=== PATIENT | female | born 1990 | race Hispanic/Latino ===

== ENCOUNTER 2019-12-02 09:23 | Day surgery (SDC) | payer OTHER ==
[2019-12-02 10:08] VITALS: BP 123/75; TEMP 98.8; BMI 32.0
[2019-12-02] MEDS ORDERED: hydrALAZINE 20 MG/ML VIAL SLOW IVP PRN (10:18)
--- NOTE | 2019-12-02 10:36 | PDOC.FPROB ---
FMR OB H&P: HPI - History of Present Illness Chief Complaint: Contractions Indentification: 29yo @ 38.5 History of Present Illness: Pt states that at 0230 this morning she was awakened to pain in her back that felt like cramping. It progressed and started to wrap around her abdomen and pt realized she was having cxns. By 0800 they were 4 minutes apart prompting her to seek evaluation. Denies any vaginal bleeding or new discharge, loss of fluid, headaches, vision changes, N/V/D. She was checked at her last OB appointment 3 days ago and was dilated to a 2. Pt was scheduled for induction on 12/05 but missed her COVID appointment because pt stated that she was not informed of this induction date. Primary Care Physician: Dr. Dunlap FMR OB H&P: Current - Care : 3 Para: 2 Gestational age: 38.5 Due date: 12/11/2019 Dating Criteria: LMP and 1T sono Course/Complications: None - OB Labs Blood type: O RH: positive HIV: negative RPR: negative HepBsAg: negative Rubella: immune Urine drug screen: negative 1 hour gtt: 93 GBS: negative H&H: 11 FMR OB H&P: History - Past Medical History PMH: None - OB History OB History: 2 previous term vaginal deliveries without complications - ANNUAL GIVING MANAGER History ANNUAL GIVING MANAGER History: None - Surgical History Sx History: None - Social History Social History: Denies tobacco, alcohol, or illicit drug use - Family History Family History: Non contributory FMR OB H&P: Medications - Current Home Medications: Medication Instructions Recorded Confirmed Type Pnv No.95/Ferrous Fum/Folic AC 1 each PO DAILY 12/02/19 12/04/19 History [ [place]] Allergies/Adverse Reactions: Allergies Allergy/AdvReac Type Severity Reaction Status Date / Time No Known Drug Allergies Allergy Verified 12/04/19 20:16 FMR OB H&P: ROS - Review of Systems General: denies: fever/chills, fatigue Eyes: denies: vision changes, scotomas ENT: denies: nasal congestion, sore throat Cardiovascular: denies: chest pain, palpitation, edema Respiratory: denies: cough, shortness of breath Gastrointestinal: denies: nausea, vomiting, diarrhea, constipation Genitourinary (Female): reports: contractions. denies: incontinence, dysuria, vaginal discharge, vaginal bleeding Neurologic: denies: weakness, headache Integumentary: denies: rash, lesions Psychological: denies: depression, anxiety FMR OB H&P: Vital Signs - Maternal Vital signs: Vital Signs - First Documented Temp Pulse Resp BP Pulse Ox 98.8 F 74 16 123/75 98 12/02/19 09:38 12/02/19 09:38 12/02/19 09:38 12/02/19 09:38 12/02/19 09:38 - Heart Tones Baseline: 135 Variability: moderate Acceleration: present Deceleration: absent Category: category 1 [place] contractions every: 3-5 FMR OB H&P: Physical Exam - Physical Exam General: NAD, awake, alert and oriented HEENT: normocephalic and atraumatic, EOMI, MMM Heart: RRR, normal S1/S2, no murmurs/rubs/gallops, pulses present General: CTAB, no respiratory distress, good air movement Abdomen: soft, gravid, non-tender Musculoskeletal: pulses present, FROM in all four extremities Neurological: no focal deficit Skin: no rash, capillary refill <2 seconds Psychiatric: intact recent and remote memory, good judgement and insight - Pelvic Exam SVE: 2/50/-3 [place] score: 3 FMR OB H&P: A/P Disposition: Labor check - Term intrauterine - presented with complaints of contractions rated 2-3/10 occurring q4 minutes - on monitor initially carmen q3 minutes now spacing out to >q6 minutes - no signs/sx of ROM - cervical check of 2/50/-3 upon arrival - Cat 1 strip 1035: Plan- Will observe patient on the unit for 2 hours and re-check to confirm if she is making cervical change. Contractions now spacing out so seems unlikely. Disposition pending update in clinical status at that time. Update @ 1232: Patient has made cervical change to 3/60/-2. Will continue to monitor further to confirm pt is continuing to make change. Will place back on the monitor to better assess frequency of contractions. Update @ 1426: Check remains 3/60/-2. Pt's pain has moved to her lower abdomen and no longer in her back. Rates it at 2/10 currently. Discussed options to further induce patient's labor. Pt requests to be discharged home. Had in depth discussion regarding reasons to return and labor precautions. Discussion: Date/Time: 12/02/19 1034 This H&P was discussed with Dr. Rooney who agrees with the above documentation and plan. Addendum - Attending - Attending Attestation Date/Time: 12/06/19 1019 I personally evaluated the patient and discussed the management with Dr. Smith I agree with the History, Examination, Assessment and Plan documented above with any addition or exceptions noted below.
== END 2019-12-02 14:38 | disposition home or self-care (01) ==
LOC: L&D/OP 09:23
PROVIDERS: ATTEND Student in an Organized Health Care Education/Training Program
DX: O47.1 False labor at or after 37 completed weeks of gestation (principal); Z3A.38 38 weeks gestation of pregnancy
CPT/HCPCS: 99283

== ENCOUNTER 2019-12-04 19:33 | Day surgery (SDC) | payer OTHER ==
[2019-12-04 20:15] VITALS: BP 134/72; BMI 32.0
[2019-12-04] MEDS ORDERED: hydrALAZINE 20 MG/ML VIAL SLOW IVP PRN (23:08)
--- NOTE | 2019-12-05 01:44 | PRG ---
DATE OF SERVICE: 12/04/2019 PRIMARY OB: Dr. Deja Dunlap. CHIEF COMPLAINT: Contractions. HISTORY OF PRESENT ILLNESS: The patient is a 29-year-old G3, P2 female with an intrauterine at 39 weeks' gestation, presenting to Labor and Delivery with progress of uterine contractions since about 6 o'clock. She reports contractions have come as close as every 6 to 8 minutes. She reports that they have become much stronger than they were 2 days ago when she had presented with the same complaint. The patient denies vaginal bleeding or leakage of fluid. She denies fever, cough, headache, chest pain, shortness of breath, nausea, vomiting, diarrhea, constipation, hip problems, knee problems, muscle weakness. PAST MEDICAL HISTORY: Negative. PAST SURGICAL HISTORY: Negative. ALLERGIES: NO KNOWN DRUG ALLERGIES. MEDICATIONS: vitamins. SOCIAL HISTORY: Denies drug, alcohol, or tobacco use. OB LABS: Blood type is O positive. Antibody screen is negative. HIV negative. RPR nonreactive. Hepatitis B surface antigen nonreactive. She is rubella immune. 1-hour glucose 93. She is GBS negative. PHYSICAL EXAMINATION: VITAL SIGNS: Blood pressure 129/82, heart rate of 75, respiratory rate of 18, saturating 98% on room air. GENERAL: She appears to be in no acute distress. She is alert, oriented, cooperative, and pleasant to interact with. HEENT: Head is normocephalic and atraumatic. LUNGS: Clear to auscultation bilaterally. HEART: Has a regular rate and rhythm. ABDOMEN: Gravid and soft. EXTREMITIES: Nontender, nonedematous. Cervical exam per nursing staff is 3, 50, and -3 station which was equivalent to her exam two days ago. Repeat exam 3 hours later is unchanged. heart tracing shows the fetus with a baseline in the 120s with moderate long-term variability, positive 15 x 15 accelerations, no decelerations. Tocometer shows irregular contractions without any specific pattern. ASSESSMENT AND PLAN: The patient is a 29-year-old female at 39 weeks' gestation, presenting for abdominal pain and evaluation of labor. The patient has been monitored for 3 hours without any signs or symptoms of labor. The patient is comfortable with going home. Fetus is category 1 tracing and reactive NST. She has appointment with Dr. Dunlap tomorrow that we have encouraged to keep. Job ID: [id number]
== END 2019-12-04 23:20 | disposition home or self-care (01) ==
LOC: L&D/OP 19:33
PROVIDERS: ATTEND Student in an Organized Health Care Education/Training Program
DX: O47.1 False labor at or after 37 completed weeks of gestation (principal); O99.891 Other specified diseases and conditions complicating pregnancy; R10.9 Unspecified abdominal pain; Z3A.39 39 weeks gestation of pregnancy
CPT/HCPCS: 99283

== ENCOUNTER 2019-12-10 08:11 | Inpatient (IN) | payer OTHER ==
[2019-12-10 08:45] VITALS: BMI 32.0
[2019-12-10] MEDS ORDERED: Lidocaine 1% (PF) 30 ML VIAL SC PRN (09:01)
[2019-12-10] MEDS ORDERED: NS / Oxytocin 40 units/1000ml 1,000 ML IV PRN (09:01)
[2019-12-10] MEDS ORDERED: hydrALAZINE 20 MG/ML VIAL SLOW IVP PRN ×2 (09:01→15:37)
[2019-12-10] MEDS ORDERED: Ondansetron PF 4 MG/2 ML Vial IVP PRN ×3 (09:01→15:37)
[2019-12-10] MEDS ORDERED: Promethazine HCl 25 MG/ML VIAL IM PRN ×2 (09:01→10:46)
--- NOTE | 2019-12-10 09:05 | PDOC.LDHP ---
Labor and Delivery H&P Chief complaint: loss of fluid HPI: 29 y/oF # 39.6 weeks presents to L&D with LOF at 7 AM this morning. reports good movements slight vaginal spotting with LOF few intermittent ctx since LOF this morning, painful. denies previous vag d/c ROS: denies visual changes, CP, SOB, cough, fever, chills, body aches, increased swelling, abd pain, n/c/d. pt reports her GBS was negative in office PCP: Dr. Dunlap Current gestational age (weeks): 39 (39.6) Due date: 12/11/19 Grav: 3 Para: 2 OB History Details: Preg #1: in 2008, 40 weeks Preg #2: in 2017, 40 weeks Current complications: none Past Medical History: no known medical problems Current medications: pre-jacob vitamins Previous surgical history: none Allergies/Adverse Reactions: Allergies Allergy/AdvReac Type Severity Reaction Status Date / Time No Known Drug Allergies Allergy Verified 12/04/19 20:16 Social history: none - Physical Exam Vital signs reviewed and normal: yes General: NAD, resting, breathing through contractions Heart: RRR Lungs: CTAB Abdomen: gravid Extremeties: no edema FHT: category 1 (130 baseline, with acels, no decles, mod manpreet) [place] contractions every: Q8-10 min - Vaginal Exam cm dilated: 4 (/-4) Effacement: 75% - OB Labs Blood type: O RH: positive HIV: negative RPR: negative HEPSAg: negative GBS: negative Rubella: immune - Assessment L&D Assessment: term patient in labor 29 y/o F presents to L&D with SROM, with gross amniotic fluid leak 1. sIUP @39.6 wks - FHT and toco monitoring - grossly ruptured and fluid leaking per vagina on exam. No membranes palpated on SVE. - Dr. Dunlap has been notified of patient's arrival - GBS neg - SVE: /-4 Dispo: admit to L&D for labor and SROM Dr. Dunlap notified and will manage patient. - Plan Plan: admit to L&D Addendum - Attending - Attending Attestation Date/Time: 12/10/19 1017 I personally evaluated the patient and discussed the management with Dr. Machado. Term IUP admiited with SROM, 4 cm. Admitted, Dr. Dunlap notified. I agree with the History, Examination, Assessment and Plan documented above.
[2019-12-10] MEDS ORDERED: Lactated Ringer's 1,000 ML IV SCH (09:15)
[2019-12-10 09:46] LABS: Hemoglobin 10.4 g/dL (12.0-16.0); Mean Corpuscular Hemoglobin 27.9 pg (27.0-31.0); Mean Corpuscular Volume 82.1 fL (78.0-98.0); Mean Platelet Volume 9.1 fL (7.4-10.4); Platelet Count 244 thou/uL (130-400); RBC Distribution Width 13.8 % (11.5-14.5); Red Blood Cell (RBC) Count 3.73 mill/uL (4.20-5.40); White Blood Cell (WBC) Count 7.8 thou/uL (4.8-10.8)
[2019-12-10] MEDS ORDERED: Fentanyl 4 mcg/Bup 0.1% Cadd 100 ML ONE (09:59)
[2019-12-10 10:24] LABS: Syphilis Antibody Nonreactive (Nonreactive); Syphilis Antibody Index 0.04 S/CO (<1.00 Non-Reactive)
[2019-12-10 10:25] LABS: HBSAg Index 0.13 S/CO (0-0.99); Hep B Surf Ag Non-Reactive S/CO (NonReactive)
[2019-12-10] MEDS ORDERED: Acetaminophen 325 MG TAB PO PRN (10:46)
[2019-12-10] MEDS ORDERED: diphenhydrAMINE 50 MG/ML VIAL IVP PRN (10:46)
[2019-12-10] MEDS ORDERED: Naloxone HCl 0.4 mg/ml Vial IVP PRN ×2 (10:46)
[2019-12-10] MEDS ORDERED: Lactated Ringer's 500 ML IV PRN (10:46)
[2019-12-10] MEDS ORDERED: ePHEDrine 50 MG/ML VIAL SLOW IVP PRN (10:59)
[2019-12-10] MEDS ORDERED: Fentanyl 4 mcg/Bupivacaine 0.1% Cassette 100 ML EPIDURAL SCH (11:00)
[2019-12-10] MEDS ORDERED: Communication Order-Pharmacy FS SCH (11:00)
[2019-12-10] MEDS ORDERED: Milk Of Magnesia 30 ML UDCUP PO PRN (15:37)
[2019-12-10] MEDS ORDERED: NS / Oxytocin 40 units/1000ml 1,000 ML IV SCH (15:37)
[2019-12-10] MEDS ORDERED: Lanolin Ointment 7 GM TUBE TOP PRN (15:37)
[2019-12-10] MEDS ORDERED: Benzocaine-Menthol 82.5 ML CAN TOP PRN (15:37)
[2019-12-10] MEDS ORDERED: Adacel (T-DAP) 0.5 ML SYRINGE IM ONE (15:37)
[2019-12-10] MEDS ORDERED: Bisacodyl 10 MG SUPP PR PRN (15:37)
[2019-12-10] MEDS ORDERED: diphenhydrAMINE 25 MG CAP PO PRN (15:37)
[2019-12-10] MEDS: Ferrous Sulfate 325 MG TAB PO SCH (18:27)
[2019-12-10] MEDS: Ibuprofen 800 MG TAB PO SCH (20:09)
[2019-12-10] MEDS: Docusate Calcium (SURFAK) 240 MG CAP PO SCH (20:09)
[2019-12-11] MEDS: Ibuprofen 800 MG TAB PO SCH ×2 (04:51→14:24)
[2019-12-11] MEDS: Ferrous Sulfate 325 MG TAB PO SCH (08:40)
[2019-12-11] MEDS ORDERED: Prenatal Vitamin 1 TAB PO SCH (09:00)
[2019-12-11] MEDS: Docusate Calcium (SURFAK) 240 MG CAP PO SCH (09:31)
[2019-12-11 12:43] VITALS: BP 129/84; TEMP 98
--- NOTE | 2019-12-11 12:50 | PDOC.OPDEL ---
OB Operative/Delivery Note Delivery Dr/Surgeon: Germán Assist: n/a Pre-Delivery Diagnosis: active labor Procedure/Post Delivery Dx: spontaneous vaginal delivery Weeks gestation: 39 Anesthesia: epidural - Findings A Sex: female Weight: 9 lb 4 oz - 1 min: 8 - 5 min: 9 - Additional Findings/Plan Placenta delivered: spontaneous Repaired Obstetrical Laceration: none Estimated blood loss: 75cc Post delivery plan: routine recovery
--- NOTE | 2019-12-11 12:50 | PDOC.PP ---
Post Progress Note Post Day #: 1 PO intake tolerated: yes Flatus: yes Ambulation: yes Vital Signs (12 hours) Temp Pulse Resp BP Pulse Ox 12/11/19 12:05 98.0 F 81 16 129/84 100 12/11/19 07:45 97.7 F 79 16 115/60 99 12/11/19 04:50 98.1 F 51 L 16 115/64 Weight Weight 175 lb - Physical Examination General: NAD Respiratory: non-labored breathing Abdominal: no distention, appropriately TTP Fundus firm & at: umb Neurological: no gross focal deficits Psychiatric: normal affect Result Diagrams: 12/10/19 09:26 Additional Labs: Post Labs Hep Bs Antigen Non-Reactive S/CO (NonReactive) 12/10/19 09:26 Blood Type O POSITIVE 12/10/19 09:26 - Assessment/Plan PPD1 s/p TSVD VSSAF Doing well, lochia < menses Rh pos RImm Dc home FU 6w
[2019-12-11 13:00] LABS: SARS-CoV-2 MS2 Positive; SARS-CoV-2 N Gene Negative; SARS-CoV-2 S Gene Negative; SARS-CoV-2 by NAA Not Detected (NotDetected); SARS-CoV-2 orf1ab Negative
== END 2019-12-11 19:40 | disposition home or self-care (01) | DRG 807 ==
LOC: L&D/OP 08:11 → L&D 09:03 → 3SW 17:42
PROVIDERS: ADMIT Student in an Organized Health Care Education/Training Program; ATTEND Student in an Organized Health Care Education/Training Program
PROC: 10E0XZZ Delivery of Products of Conception, External Approach (ICD-10-PCS; principal; 2019-12-10)
DX: O80 Encounter for full-term uncomplicated delivery (principal); Z37.0 Single live birth; Z3A.39 39 weeks gestation of pregnancy; Z20.828 Contact with and (suspected) exposure to other viral communicable diseases
CPT/HCPCS: 36415; 51702; 85027; 86780; 86850; 86900; 86901; 87340; 87635; 99285; U0003

== ENCOUNTER 2023-04-23 13:00 | Outpatient (CLI) | payer BC | END 2023-04-23 13:01 | disposition home or self-care (01) | LOC: ULT 13:00 | PROVIDERS: ATTEND Family Medicine | DX: M79.601 Pain in right arm (principal) ==